=== PATIENT | male | born 1995 | race Caucasian/White ===

== ENCOUNTER 2020-08-22 18:48 | Emergency (ER) | payer OTHER ==
[~2020-08-22] VITALS: Ht 167.6 cm; Wt 63.5 kg
[2020-08-22 18:55] VITALS: BP 126/77
--- NOTE | 2020-08-22 18:55 | NUR ---
Patient ambulated to bed 08 with steady/even gait.
--- NOTE | 2020-08-22 19:05 | NUR ---
RECEIVED REPORT FROM [facility] RN FOR CONTINUITY OF CARE
--- NOTE | 2020-08-22 19:05 | NUR ---
24 y/o M coming in from home with c/c right index finger laceration/pain. Patient states at 1745, he was at work assisting a customer with a mirror when he sliced his right 1st digit finger. Patient states bleeding controlled prior to arrival, denies any pain at this time; states 0/10 however is experiencing numbness and tingling at the site. CMS intact. Pt denies any medications prior to arrival. Pt placed onto blood pressure cuff, pulse ox. Bed locked in lowest position, side rails x 1. PMH/Meds/Sx: Denies NKA
--- NOTE | 2020-08-22 19:10 | NUR ---
Report and transfer of care given to CLARKE Vo.
[2020-08-22] MEDS ORDERED: BACITRACIN OINT 500 UNITS/GM PKT TP ONE (19:30)
[2020-08-22] MEDS ORDERED: BACI1PAC6 TP (19:56)
[2020-08-22] MEDS ORDERED: LIDOCAINE MPF 1% 5 ML ONE (20:02)
[2020-08-22] MEDS ORDERED: LIDOCAINE MPF 1% 10 MG/ML VIAL INJ ONE (20:05)
[2020-08-22 20:34] VITALS: BP 126/77
== END 2020-08-22 20:30 | disposition home or self-care (01) ==
LOC: MED 18:48
DX: S61.210A Laceration without foreign body of right index finger without damage to nail, initial encounter (principal); W25.XXXA Contact with sharp glass, initial encounter; Y93.89 Activity, other specified; Y92.89 Other specified places as the place of occurrence of the external cause; Y99.8 Other external cause status
CPT/HCPCS: 12001; 90471; 90715; 99283; J2001

== ENCOUNTER 2020-08-29 10:48 | Emergency (ER) | payer OTHER ==
[~2020-08-29] VITALS: Ht 167.6 cm; Wt 63.5 kg
[~2020-08-29 10:48] MED LIST: BACI1PAC6 TP
[2020-08-29 10:59] VITALS: BP 123/72
--- NOTE | 2020-08-29 11:04 | NUR ---
Patient ambulated to bed 1. RN evaluating the patient at bedside.
--- NOTE | 2020-08-29 11:09 | NUR ---
Pt seen here 08/22/20 for laceration to right index finger from work injury. Pt instructed to come back in 7 days for suture removal. Area is clean and dry. No redness or drainage noted. Awaiting for ERMD to evaluate pt. Allergies: NKA Med hx: none
[2020-08-29 12:10] VITALS: BP 123/72
--- NOTE | 2020-08-29 12:10 | NUR ---
Patient discharged with v/s stable. Written and verbal after care instructions given and explained. Patient verbalized understanding. Ambulatory with steady gait. All questions addressed prior to discharge. Advised to follow up with PMD.
== END 2020-08-29 12:10 | disposition home or self-care (01) ==
LOC: MED 10:48
DX: S61.210D Laceration without foreign body of right index finger without damage to nail, subsequent encounter (principal); Z48.00 Encounter for change or removal of nonsurgical wound dressing; X58.XXXD Exposure to other specified factors, subsequent encounter
CPT/HCPCS: 99281